=== PATIENT | female | born 1980 | race African-American/Black ===

== ENCOUNTER 2022-04-28 14:19 | Emergency (ER) | payer OTHER ==
[~2022-04-28] VITALS: Ht 167.6 cm; Wt 97.5 kg
[2022-04-28 14:19] VITALS: BP 143/90
--- NOTE | 2022-04-28 15:24 | NUR ---
PT WAS [place] FROM [place] [employer], INITIALLY WAS C/O SUICIDAL IDEATION AND BEING COLD. [employer] WAS AT THE SCENE FOUND OUT THAT SHE HAS A WARRANT AND IS GONNA BE IN CUSTODY. SEEN AND EVALUATED BY DR CEJA. MEDICALLY CLEARED. DISCHARGE TO IN STABLE CONDITION.
== END 2022-04-28 15:34 ==
LOC: ER 14:56
DX: R45.1 Restlessness and agitation (principal)